=== PATIENT | female | born 1955 | race Caucasian/White ===

== ENCOUNTER → 2016-12-22 | Outpatient (CLI) | payer BC ==
[~2016-12-22] VITALS: Ht 157.5 cm; Wt 61.7 kg
[~2016-12-22] MED LIST: ADIPEX-P37.5 MG PO; ATORVASTATIN PO; CETIRIZINE PO; FASTIN30 MG PO; FEMHRT PO; JUNEL FE 1/20 21 TAB PO; JUNEL FE PO; MEPERIDINE PO; NORCO 325 MG-51 TAB PO; PHENERGAN 25 TA25 MG PO; PHENTERMINE30 MG PO; PRILOSEC 20MG20 MG PO; PRO AIR IH; PRO-FAST HS18.75 MG PO; SINGULAIR PO; SINGULAIR10 MG PO; TOPAMAX 25MG25 M1 PO; TOPAMAX25 MG PO; TOPAMAX50 MG PO; VITAMIN D31000 IU PO; VITAMIN D50000 I1 PO; ZOMIG; ZOMIG 5MG TAB5 MG PO; ZOMIG5 MG PO
== END ==
LOC: LIGHT 07-14 11:31
DX: J45.998 Other asthma (principal); G43.809 Other migraine, not intractable, without status migrainosus; E66.3 Overweight; Z68.25 Body mass index [BMI] 25.0-25.9, adult; K21.9 Gastro-esophageal reflux disease without esophagitis; Z90.49 Acquired absence of other specified parts of digestive tract

== ENCOUNTER → 2017-03-02 | Outpatient (CLI) | payer BC ==
[~2017-03-02] VITALS: Ht 157.5 cm; Wt 61.0 kg
[2017-03-02 09:28] VITALS: BP 122/65; PULSE 83
== END ==
LOC: LIGHT 09:20
DX: J45.909 Unspecified asthma, uncomplicated (principal); G43.909 Migraine, unspecified, not intractable, without status migrainosus; E66.3 Overweight; Z68.24 Body mass index [BMI] 24.0-24.9, adult; Z71.3 Dietary counseling and surveillance; K21.9 Gastro-esophageal reflux disease without esophagitis

== ENCOUNTER 2017-03-14 11:37 | Day surgery (SDC) | payer BC ==
[~2017-03-14] VITALS: Ht 157.5 cm; Wt 60.5 kg
[2017-03-14 11:57] VITALS: BP 120/88; PULSE 90; TEMP 97.9
[2017-03-14 13:40] VITALS: BP 115/79; PULSE 98; TEMP 98.4
[2017-03-14 13:45] VITALS: BP 125/66; PULSE 95
[2017-03-14 14:00] VITALS: BP 111/78; PULSE 92
== END 2017-03-14 14:23 | disposition home or self-care (01) ==
LOC: SDCO 11:37
DX: D12.3 Benign neoplasm of transverse colon (principal); K64.0 First degree hemorrhoids; J45.909 Unspecified asthma, uncomplicated; E78.00 Pure hypercholesterolemia, unspecified; K21.9 Gastro-esophageal reflux disease without esophagitis; Z86.010 Personal history of colon polyps
CPT/HCPCS: OP; J2250; J2405; J3010; J7030

== ENCOUNTER → 2017-05-25 | Outpatient (CLI) | payer BC ==
[~2017-05-25] VITALS: Ht 157.5 cm; Wt 60.8 kg
[2017-05-25 11:40] VITALS: BP 96/60; PULSE 80
== END ==
LOC: LIGHT 05-04 10:39
DX: J45.909 Unspecified asthma, uncomplicated (principal); G43.909 Migraine, unspecified, not intractable, without status migrainosus; E66.3 Overweight; Z68.24 Body mass index [BMI] 24.0-24.9, adult; Z71.3 Dietary counseling and surveillance; K21.9 Gastro-esophageal reflux disease without esophagitis

== ENCOUNTER → 2017-12-28 | Outpatient (CLI) | payer BC ==
[~2017-12-28] VITALS: Ht 157.5 cm; Wt 61.5 kg
[2017-12-28 08:56] VITALS: BP 104/78; PULSE 80
== END ==
LOC: LIGHT 08-03 09:45
DX: J45.909 Unspecified asthma, uncomplicated (principal); G43.909 Migraine, unspecified, not intractable, without status migrainosus; E66.3 Overweight; Z68.25 Body mass index [BMI] 25.0-25.9, adult; Z71.3 Dietary counseling and surveillance; K21.9 Gastro-esophageal reflux disease without esophagitis
CPT/HCPCS: G0463

== ENCOUNTER → 2018-04-05 | Outpatient (CLI) | payer BC ==
[~2018-04-05] VITALS: Ht 157.5 cm; Wt 59.4 kg
[2018-04-05 09:02] VITALS: BP 108/70; PULSE 88
== END ==
LOC: LIGHT 08:51
DX: G43.909 Migraine, unspecified, not intractable, without status migrainosus (principal); K21.9 Gastro-esophageal reflux disease without esophagitis; E66.3 Overweight; Z68.24 Body mass index [BMI] 24.0-24.9, adult; Z71.3 Dietary counseling and surveillance
CPT/HCPCS: G0463

== ENCOUNTER 2021-10-30 17:16 | Observation (INO) | payer BC ==
[~2021-10-30] VITALS: Ht 157.5 cm; Wt 63.4 kg
[2021-10-30 17:42] LABS: BASO % 0.4 % (0.0-2.0); EOS # 0.1 K/mm3 (0.0-0.7); EOS % 1.9 % (0.0-4.0); GRAN # 6.4 K/mm3 (1.4-6.5); HEMATOCRIT 42.2 % (37.0-47.0); HEMOGLOBIN 13.9 g/dl (12.5-16.0); LYMPH # 0.7 K/mm3 (1.2-3.4); LYMPH % 8.8 % (20.0-51.0); MEAN CELL VOLUME 87 fl (80.0-100.0); MEAN CORPUSCULAR HEMOGLOBIN 29 pg (27-31); MEAN CORPUSCULAR HGB CONC 33 g/dl (33.0-37.0); MEAN PLATELET VOLUME 10.6 fl (7.4-10.4); MONO # 0.3 K/mm3 (0.1-0.6); MONO % 3.6 % (1.7-9.3); PLATELET COUNT 355 K/mm3 (130-400); RED BLOOD COUNT 4.83 M/mm3 (4.10-5.30); REDCELL DISTRIBUTION WIDTH-CV 13.1 % (11.5-14.5)
[2021-10-30 17:49] LABS: INR 1.1 (0.8-3.0)
[2021-10-30 18:00] LABS: ALANINE AMINOTRANSFERASE 16 U/L (0-55); ALBUMIN 3.9 gm/dL (3.4-4.8); ALKALINE PHOSPHATASE 76 U/L (40-150); ANION GAP 10 mmol/L (7-16); AST,SGOT 20 U/L (5-34); BILIRUBIN,TOTAL 0.6 mg/dL (0.2-1.2); BLOOD UREA NITROGEN 21 mg/dL (10-20); C-REACTIVE PROTEIN 0.74 mg/dL (0.00-0.50); CARBON DIOXIDE 22 mmol/L (23-31); CHLORIDE 105 mmol/L (98-107); CREATININE, serum 0.97 mg/dL (0.57-1.11); GLUCOSE 116 mg/dL (70-99); POTASSIUM 3.8 mmol/L (3.5-4.5); SODIUM 137 mmol/L (136-145); TOTAL PROTEIN 7.3 gm/dL (6.2-8.1)
[2021-10-30 18:10] LABS: TROPONIN-I < 0.010 ng/mL (0.00-0.033)
[2021-10-30] MEDS ORDERED: ZYRTEC 10MG10 MG PO (19:18)
[2021-10-31 00:05] VITALS: BP 110/74; PULSE 98; TEMP 98.3
[2021-10-31 04:12] VITALS: BP 119/66; PULSE 101; TEMP 98.7
[2021-10-31 06:30] LABS: BASO % 0.6 % (0.0-2.0); EOS # 0.1 K/mm3 (0.0-0.7); EOS % 2.4 % (0.0-4.0); GRAN # 2.3 K/mm3 (1.4-6.5); GRAN % 68.5 % (42.2-75.2); LYMPH # 0.6 K/mm3 (1.2-3.4); LYMPH % 19.2 % (20.0-51.0); MEAN CELL VOLUME 88 fl (80.0-100.0); MEAN CORPUSCULAR HGB CONC 32 g/dl (33.0-37.0); MONO # 0.3 K/mm3 (0.1-0.6); MONO % 9.3 % (1.7-9.3); PLATELET COUNT 258 K/mm3 (130-400); RED BLOOD COUNT 3.73 M/mm3 (4.10-5.30); REDCELL DISTRIBUTION WIDTH-CV 13.3 % (11.5-14.5)
[2021-10-31 06:35] LABS: HEMATOCRIT 32.9 % (37.0-47.0); HEMOGLOBIN 10.5 g/dl (12.5-16.0); MEAN CORPUSCULAR HEMOGLOBIN 28 pg (27-31)
[2021-10-31 06:44] LABS: ANION GAP 4 mmol/L (7-16); BLOOD UREA NITROGEN 14 mg/dL (10-20); CALCIUM 7.5 mg/dL (8.4-10.2); CARBON DIOXIDE 21 mmol/L (23-31); CHLORIDE 112 mmol/L (98-107); CHOLESTEROL 161 mg/dL (0-199); CHOLESTEROL RISK RATIO 4.4; CREATININE, serum 0.77 mg/dL (0.57-1.11); GLUCOSE 93 mg/dL (70-99); HDL CHOLESTEROL 36 mg/dL (40-60); LDL CHOLESTEROL 105 mg/dL; POTASSIUM 3.1 mmol/L (3.5-4.5); SODIUM 137 mmol/L (136-145); TRIGLYCERIDE 101 mg/dL (0-149)
[2021-10-31 06:52] LABS: TROPONIN-I < 0.010 ng/mL (0.00-0.033)
--- NOTE | 2021-10-31 07:15 | NUR ---
PT ARRIVED TO MEDICAL FLOOR AT 2255HRS TO [id number]. PT A&O X 4, VSS, O2 ON RA. PT COMPLAIN OF A HEADACHE. PT GIVEN MORPHINE PER REQUEST. PT DENIED CHEST PAIN, SOB, N,V,D OR DIZZINESS. ADMISSIONS ASSESSMENT AND MED REC COMPLETE. PT ORIENTED TO ROOM AND HOSPITAL POLICY. POC DISCUSSED WITH PT. PT VERBALIZED UNDERSTANDING. ALL QUESTIONS AND CONCERNS ADDRESSED. PT EXPRESSED NO OTHER NEEDS AT THIS TIME. CALL LIGHT WITHIN REACH.
[2021-10-31 07:52] VITALS: BP 116/66; PULSE 95; TEMP 98.3
--- NOTE | 2021-10-31 09:58 | NUR ---
PT SITTING UP IN BED FINISHING BREAKFAST WITH AT BEDSIDE. PT STATES THAT SHE IS NOT HAVING ANY N/V AT THIS TIME. PT STATES THAT SHE HAS ALSO NOT HAD ANY DIARRHEA. PT WAS INFORMED THAT WE NEED A URINE SAMPLE FROM HER. HAT WAS PLACED INTO THE POTTY. PT INFORMED NOT TO PUT TOLIET PAPER IN HAT AND TO LET US KNOW WHEN SHE IS ABLE TO VOID. PT VOICED UNDERSTANDING. PT STATES THAT SHE IS NOT HAVING ANY PAIN AT THIS TIME. PT STATES THAT SHE HAS NO OTHER NEEDS. CALL LIGHT IS WITHIN REACH.
--- NOTE | 2021-10-31 10:03 | NUR ---
CALLED RT TO INFO OF EKG ORDER. VOICED UNDERSTANDING.
[2021-10-31 10:36] LABS: MUCOUS Present (NOT PRESENT); PH 5 (5-8); SQUAMOUS EPITHELIAL 0-2 /hpf (0-10); URINE APPEARANCE Hazy (CLEAR/HAZY); URINE BACTERIA None Seen /hpf (NONE SEEN); URINE BILIRUBIN Negative (NEGATIVE); URINE BLOOD Negative (NEGATIVE); URINE COLOR Yellow (YELLOW); URINE GLUCOSE Negative (NEGATIVE); URINE KETONE Trace (NEGATIVE); URINE LEUKOCYTE ESTERASE Negative (NEGATIVE); URINE NITRATE Negative (NEGATIVE); URINE PROTEIN(semi-quant) Negative (NEGATIVE); URINE RBC 0-2 /hpf (0-2); URINE UROBILINOGEN Negative (NEGATIVE)
[2021-10-31 10:47] LABS: COLLECTION METHOD CLEAN CATCH
[2021-10-31 11:01] VITALS: BP 101/60; PULSE 101; TEMP 97.9
--- NOTE | 2021-10-31 13:52 | NUR ---
CONTACTED MANUFACTURE SPECIALIST AND INFORMED OF EGD ORDER. STATES THAT SHE WAS AWARE OF IT AND WILL LET ENDO KNOW. IT WILL BE FOR VANESSA AT 10AM.
--- NOTE | 2021-10-31 13:57 | NUR ---
PT lives at home with spouse, Kyler, [phone]. The pt PCP is DR. Lang and gets medications from [facility]. The pt is independent on all ADLS and does not use any DME. The pt has never used HH services before. No DPOA-HC and not interested at this moment. Sw to follow for further recommendations. DC: Home w/spouse.
--- NOTE | 2021-10-31 16:18 | NUR ---
PT RESTING IN BED. AT BEDSIDE. PT STATES THAT SHE IS COLD AND WOULD LIKE TO HEAT TURNED UP. THERMOSTAT WAS ADJUSTED. PT STATES THAT SHE IS NOT HAVING ANY PAIN. PT STATES NO OTHER NEEDS. CALL LIGHT IS WITHIN REACH.
[2021-10-31 16:45] VITALS: BP 105/61; PULSE 109; TEMP 98.4
--- NOTE | 2021-10-31 18:51 | NUR ---
PT LAYING IN BED WATCHING TV. PT STATES THAT IS SHE DONE WITH HER DINNER TRAY. TRAY WAS REMOVED. NO OTHER NEEDS WERE STATED. CALL LIGHT IS WITHIN REACH.
[2021-10-31 19:25] VITALS: BP 97/70; PULSE 107; TEMP 100.1
--- NOTE | 2021-10-31 19:27 | NUR ---
PT IS IN BED ON HER PHONE TALKING TO FAMILY AT THIS TIME. DID ASSESS PATIENT, PT HAS LOW GRADE TEMP OF 100.1, HR SLIGHTLY TACHY AND BLOOD PRESSURE IS SOFT. WILL CONTINUE TO MONITOR AND ADMINISTER SOME PO TYLENOL FOR TEMPERATURE. NO OTHER CONCERNS AT THIS TIME.
[2021-11-01] VITALS (11 sets, daily range): BP systolic 95–112; BP diastolic 58–73; PULSE 85–102; TEMP 97.6–100.1
--- NOTE | 2021-11-01 07:04 | NUR ---
THE PATIENT HAS HAD AN UNEVENTFUL NIGHT. DID HAVE A SHORTLIVED TEMPERATURE OF 100.1, BUT DID REDUCE WITHOUT MEDICATION. THE PATIENT TOOK A SHOWER, WE TURNED DOWN THE HEAT, AND SHE KEPT HERSELF UNCOVERED FOR A LITTLE WHILE AND THE TEMPERATURE REDUCED TO 98.3. NO OTHER CONCERNS. REPORT GIVEN TO BENJI GOEL.
--- NOTE | 2021-11-01 08:30 | NUR ---
PT PLEASANT, AOX4, DOES NOT HAVE ANY QUESTIONS ABOUT PROCEDURE, MEDICATIONS GIVEN, ASSESSMENT PERFORMED, NO OTHER NEEDS
--- NOTE | 2021-11-01 09:53 | NUR ---
PT TAKEN DOWN FOR PROCEDURE
--- NOTE | 2021-11-01 10:45 | NUR ---
PT RETURNED FROM PROCEDURE, DENIES PAIN/DISCOMFORT, AOX4, POST OP VITALS ATTACHED AND STABLE, AT BEDSIDE, REATTACHED TO FLUIDS
[2021-11-01] MEDS ORDERED: PROTONIX 40MG T40 MG PO (12:05)
--- NOTE | 2021-11-01 14:15 | NUR ---
DISCHARGE EDUCATION PROVIDED, IV REMOVED, TELE REMOVED, PT INDEPENDENT IN DRESSING, ESCORTED OUT VIA WHEELCHAIR, NO OTHER NEEDS
== END 2021-11-01 14:18 | disposition home or self-care (01) ==
LOC: COL.ER 17:16 → MEDICAL 18:33
PROVIDERS: Emergency Medicine; Nurse Practitioner Family; ADMIT Internal Medicine
DX: K21.00 Gastro-esophageal reflux disease with esophagitis, without bleeding (principal); K31.7 Polyp of stomach and duodenum; K22.2 Esophageal obstruction; K44.9 Diaphragmatic hernia without obstruction or gangrene; G43.909 Migraine, unspecified, not intractable, without status migrainosus; E87.2 Acidosis; E78.5 Hyperlipidemia, unspecified; R19.7 Diarrhea, unspecified; J45.909 Unspecified asthma, uncomplicated; Z79.899 Other long term (current) drug therapy
CPT/HCPCS: 99232-AI; 99239; C1726; C9113; G0378; J1650; J1885; J2270; J2405; J2550; J2704; J7030; Q9967

== ENCOUNTER → 2024-06-20 | Outpatient (CLI) | payer MEDICARE, BC ==
[~2024-06-20] MED LIST changes: +Iohexol 300 - 100 ML VIAL IV ONE; +NS 100 ML IV SCH; +PROTONIX 40MG T40 MG PO; +ZYRTEC 10MG10 MG PO
== END ==
LOC: COL.RAD 08:15
DX: K44.9 Diaphragmatic hernia without obstruction or gangrene (principal); E04.1 Nontoxic single thyroid nodule
CPT/HCPCS: Q9967